=== PATIENT | female | born 1965 | race Caucasian/White ===

== ENCOUNTER → 2019-08-09 | Outpatient (CLI) | payer OTHER ==
[~2019-08-09] MED LIST: Augmentin 875-1 EACH PO; Norco 5-325 Ta1 EACH PO
== END ==
LOC: LAB SHORT 10:03 → PLD 10:03
DX: C79.2 Secondary malignant neoplasm of skin (principal)
CPT/HCPCS: 88342

== ENCOUNTER 2022-09-08 10:58 | Day surgery (SDC) | payer OTHER ==
[~2022-09-08] VITALS: Ht 157.5 cm; Wt 67.0 kg
[2022-09-08] VITALS (18 sets, daily range): BP systolic 99–133; BP diastolic 49–79
[~2022-09-08 10:58] MED LIST changes: +BIRTH CONTROL PILL PO; +EFFEXOR XR37.5 MG PO; +NURTEC ODT75 MG PO; +PROPRANOLOL 20 MG PO
--- NOTE | 2022-09-08 12:21 | NUR ---
NERVE BLOCK COMPLETED BY ANESTHESIA AFTER CONSENT AND TIME OUT WAS COMPLETED. OTHER RN Court ASSISTED DR. CAREY. PT TOLERATED PROCEDURE WITHOUT INCIDENT, PULSE OX MONITORED.
--- NOTE | 2022-09-08 16:28 | NUR ---
DISCHARGE NOTE Discharge instructions reviewed with patient. Patient verbalizes understanding. Copy given to patient to take home. Discharged via wheelchair to private car for ride home.
--- NOTE | 2022-09-08 16:31 | NUR ---
ANESTHESIOLOGIST CONSULTED WITH PATIENT IN RECOVERY REGARDING NERVE BLOCK AND PAIN CONTROL. PER MD, NERVE BLOCK EFFECTIVE EVIDENCED BY PATIENT'S INABILITY TO MOVE DIGITS ON OPERATIVE EXTREMITY. MD ADVISED CONTINUE WITH CURRENT PLAN OF TREATMENT. ALSO ADVISED TO ADD IBUPROFEN INTO TREATMENT PLAN AFTER DISCHARGE. SURGEON CONSULTED AT BEDSIDE IN RECOVERY TO ASSESS CIRCULATION, COLOR, AND CAP REFILL. AFTER ASSESSMENT, STATES OPERATIVE LIMB EXPECTED, NO FURTHER CONCERNS. PT SAFE TO DISCHARGE HOME.
--- NOTE | 2022-09-08 16:39 | NUR ---
ADDITIONAL AQUA-LESLIE DRESSING PROVIDED TO PATIENT, PER MD ORDERS.
--- NOTE | 2022-09-12 14:13 | NUR ---
09/12/22 1413 Tami Penn VERIFICATIONS: EDIT CHART.
== END 2022-09-08 16:30 | disposition home or self-care (01) ==
LOC: ORSCMMR 10:58 → ORD 12:30 → ORSCMMR 16:30
PROVIDERS: Orthopaedic Surgery
PROC: 0PSH04Z Reposition Right Radius with Internal Fixation Device, Open Approach (ICD-10-PCS; principal; 2022-09-08 12:30)
DX: S52.531A Colles' fracture of right radius, initial encounter for closed fracture (principal); W01.0XXA Fall on same level from slipping, tripping and stumbling without subsequent striking against object, initial encounter; Y93.K1 Activity, walking an animal; Z79.899 Other long term (current) drug therapy; F41.9 Anxiety disorder, unspecified
CPT/HCPCS: A9270; C1713; J0690; J1100; J1170; J1885; J2250; J2405; J2704; J2795; J3010; J7120

== ENCOUNTER 2023-03-21 13:20 | Day surgery (SDC) | payer OTHER ==
[~2023-03-21] VITALS: Ht 157.5 cm; Wt 68.2 kg
[2023-03-21] VITALS (10 sets, daily range): BP systolic 108–150; BP diastolic 65–100
--- NOTE | 2023-03-21 14:54 | NUR ---
Ambulatory in Day Surgery History, Chart, Medications and Allergies reviewed before start of procedure. Pre-Op teaching done. Pt verbalizes understanding. Patient States Post-Procedure ride home has been arranged.
--- NOTE | 2023-03-21 17:00 | NUR ---
PT TO DAY SURGERY STEP DOWN FROM PACU. PT AWAKE AND ALERT, MOVES SELF IN BED. NO COMPLAINTS. HAS AQUACEL DRESSING ON RIGHT WRIST THAT IS C/D/I WITH A CM SPOT WITH DRAINAGE SEEN THROUGH THE DRESSING. PT IN WAITING ROOM AND WILL BE HER RIDE.
--- NOTE | 2023-03-21 17:16 | NUR ---
PT TOLERATING PO FLUIDS AND CRACKERS WELL. AT SIDE. INCISION REMAINS UNCHANGED.
--- NOTE | 2023-03-21 17:35 | NUR ---
Discharge instructions reviewed with patient. Patient verbalizes understanding. Copy given to patient to take home. Patient States Post-Procedure ride home has been arranged.
--- NOTE | 2023-03-21 17:40 | NUR ---
Patient up to Ambulate independently. Gait steady.
--- NOTE | 2023-03-21 17:46 | NUR ---
Discharged via wheelchair to private car for ride home.
== END 2023-03-21 17:46 | disposition home or self-care (01) ==
LOC: ORSCMMR 13:20 → ORD 14:45 → ORSCMMR 14:45
PROVIDERS: Orthopaedic Surgery
PROC: 0QP104Z Removal of Internal Fixation Device from Sacrum, Open Approach (ICD-10-PCS; principal; 2023-03-21 15:30)
DX: T84.84XA Pain due to internal orthopedic prosthetic devices, implants and grafts, initial encounter (principal); W01.0XXA Fall on same level from slipping, tripping and stumbling without subsequent striking against object, initial encounter; F41.8 Other specified anxiety disorders; Z79.899 Other long term (current) drug therapy
CPT/HCPCS: 73100; A9270; J0690; J1100; J1885; J2250; J2405; J2704; J3010; J7120

== ENCOUNTER → 2023-09-13 | Outpatient (CLI) | payer OTHER ==
[2023-09-13 13:48] LABS: BASOPHILS ABSOLUTE AUTO 0.04 K/mm3 (0.00-0.23); BASOPHILS PERCENT AUTO 1 % (0-2); EOSINOPHILS ABSOLUTE AUTO 0.19 K/mm3 (0.00-0.68); EOSINOPHILS PERCENT AUTO 3 % (0-6); Hematocrit 38.1 % (33.0-51.0); IMMATURE GRAN ABSOLUTE AUTO 0.02 K/mm3 (0.00-0.10); IMMATURE GRAN PERCENT AUTO 0 % (0-1); LYMPHOCYTES ABSOLUTE AUTO 1.98 K/mm3 (0.84-5.20); LYMPHOCYTES PERCENT AUTO 28 % (21-46); MONOCYTES ABSOLUTE AUTO 0.57 K/mm3 (0.16-1.47); MONOCYTES PERCENT AUTO 8 % (4-13); Mean Corpuscular HGB 32.3 pg (26.0-34.0); Mean Corpuscular HGB Conc 34.1 g/dL (31.5-36.5); Mean Corpuscular Volume 95 fL (80-100); Mean Platelet Volume 9.1 fL (9.1-12.4); NEUTROPHILS ABSOLUTE AUTO 4.17 K/mm3 (1.96-9.15); NEUTROPHILS PERCENT AUTO 60 % (41-73); Platelet Count 381 K/mm3 (150-400); RDW Coefficient Variation 13.3 % (11.7-14.2); RDW Standard Deviation 46.5 fL (35.1-46.3); Red Blood Cell Count 4.03 M/mm3 (3.80-5.20); White Blood Cell Count 6.97 K/mm3 (4.00-11.30)
[2023-09-13 13:57] LABS: Alanine Aminotransfer (ALT/SGP 22 U/L (12-78); Albumin, Blood 3.5 g/dL (3.4-5.0); Alk Phos 52 U/L (50-136); Anion Gap 8 mmol/L (3-11); Aspartate Aminotrans (AST/SGOT 13 U/L (12-37); Bilirubin, Total 0.2 mg/dL (0.1-1.0); Blood Urea Nitrogen 15 mg/dL (8-24); Bun/Creatinine Ratio 20.8 (12.0-20.0); CO2, Blood 26 mmol/L (21-32); Calcium, Blood 9.4 mg/dL (8.5-10.1); Chloride, Blood 108 mmol/L (98-108); Cholesterol 254 mg/dL (50-200); Creatinine, Blood 0.72 mg/dL (0.40-1.00); Globulin, Blood 3.5 g/dL (2.2-4.0); Glomerular Filtration Rate 97 (60-); Glucose, Blood 105 mg/dL (70-99); HDL Cholesterol 42 mg/dL (>39); LDL/HDL RATIO 3.7; Low Density Lipoprotein Chol 156 mg/dL (0-110); Potassium, Blood 3.8 mmol/L (3.5-5.5); Sodium, Blood 138 mmol/L (136-145); Triglycerides 282 mg/dL (30-160); Very Low Density Lipoprot Chol 56 mg/dL (6-32)
== END ==
LOC: LAB SHORT 11:44 → LAB 11:44
PROVIDERS: Family Medicine
DX: Z13.6 Encounter for screening for cardiovascular disorders (principal); R06.02 Shortness of breath
CPT/HCPCS: 80053; 80061; 83036; 84484; 85025

== ENCOUNTER 2024-01-25 09:13 | Day surgery (SDC) | payer OTHER ==
[2024-01-25] VITALS (15 sets, daily range): BP systolic 97–142; BP diastolic 50–82
[~2024-01-25] VITALS: Ht 157.5 cm; Wt 67.0 kg
[~2024-01-25 09:13] MED LIST changes: +Acetaminophen 500 MG Tab PO SCH; +CeFAZolin Sodium 2,000 MG in NS 100 ML IV SCH; +Chlorhexidine Mouth Care 15 ML UDC MT SCH; +DESV50 PO; +FALMINA-28 TAB1 EACH PO; +Lactated Ringer's 1,000 ML IV SCH; +OxyCODONE HCL 10 MG TABCR PO SCH; +Ropivacaine 0.5% HCl/Pf 123.125 MG,EPINEPHrine HCL 0.25 MG,Ketorolac Tromethamine 15 MG... INFIL SCH; +Tranexamic Acid 100 ML IV SCH
--- NOTE | 2024-01-25 09:51 | NUR ---
Ambulatory in Day Surgery History, Chart, Medications and Allergies reviewed before start of procedure. Pre-Op teaching done. Pt verbalizes understanding.
[2024-01-25] MEDS ORDERED: CeFAZolin Sodium 2,000 MG in NS 100 ML IV SCH ×2 (10:05→18:30)
[2024-01-25] MEDS ORDERED: Bupivacaine 0.75%/Dext 8.25% 2 ML Amp IT ONE (10:07)
[2024-01-25] MEDS ORDERED: propofoL 100 ML IV ONE (10:07)
[2024-01-25] MEDS ORDERED: Midazolam HCL 1 MG/ML 5MLVIAL ONE (10:12)
[2024-01-25] MEDS ORDERED: FentaNYL Citrate 50 MCG/ML 2 ML Injection ONE (10:15)
[2024-01-25] MEDS ORDERED: Ondansetron HCl 2 MG / ML 2ML Vial ONE (10:38)
[2024-01-25] MEDS ORDERED: Dexamethasone Sod Phos 10 MG/ML 1ML VIAL ONE (10:38)
[2024-01-25] MEDS ORDERED: Bisacodyl 10 MG Supp PR PRN (11:00)
[2024-01-25] MEDS ORDERED: DiphenhydrAMINE HCL 25 MG Cap PO PRN (11:00)
[2024-01-25] MEDS ORDERED: Ondansetron HCl 2 MG / ML 2ML Vial IV PRN (11:05)
[2024-01-25] MEDS ORDERED: Metoclopramide HCl 5MG / ML 2ML Vial IV PRN (11:05)
[2024-01-25] MEDS ORDERED: Magnesium Hydroxide Conc 10 ML UDC PO PRN (11:05)
[2024-01-25] MEDS ORDERED: OxyCODONE HCL 5 MG TAB PO PRN ×2 (11:05)
[2024-01-25] MEDS ORDERED: Promethazine HCl 25 MG Tab PO PRN (11:05)
[2024-01-25] MEDS ORDERED: HYDROmorphone HCl/Pf 1MG SYR IV PRN (11:10)
[2024-01-25] MEDS ORDERED: Lactated Ringer's 1,000 ML IV SCH (11:10)
[2024-01-25] MEDS ORDERED: RIMEGEPANT 75 MG PO PRN (11:15)
[2024-01-25] MEDS ORDERED: Acetaminophen 500 MG Tab PO SCH (16:00)
[2024-01-25] MEDS ORDERED: Ketorolac Tromethamine 15mg Vial IV SCH (18:00)
--- NOTE | 2024-01-25 19:35 | NUR ---
SHIFT SUMMARY POD0 RTKA. AQUACEL AND RUPA WRAP IN PLACE C/D/I. TOLERATING PO INTAKE AND VOIDING. PATIENT IS A SBA W/ FWW, AND GB. TOELRATING PAIN MEDICATION AND ICE TO R KNEE. PLAN FOR PT IN AM. CALL LIGHT IN REACH VSS.
[2024-01-25] MEDS ORDERED: Docusate Sodium 100 MG Cap PO SCH (21:00)
[2024-01-26] VITALS (7 sets, daily range): BP systolic 83–146; BP diastolic 60–73
[2024-01-26 04:51] LABS: BASOPHILS PERCENT AUTO 0 % (0-2); EOSINOPHILS ABSOLUTE AUTO 0.02 K/mm3 (0.00-0.68); EOSINOPHILS PERCENT AUTO 0 % (0-6); Hematocrit 34.3 % (33.0-51.0); Hemoglobin 11.4 g/dL (11.5-16.0); IMMATURE GRAN ABSOLUTE AUTO 0.05 K/mm3 (0.00-0.10); IMMATURE GRAN PERCENT AUTO 0 % (0-1); LYMPHOCYTES PERCENT AUTO 10 % (21-46); MONOCYTES ABSOLUTE AUTO 1.12 K/mm3 (0.16-1.47); MONOCYTES PERCENT AUTO 9 % (4-13); Mean Corpuscular HGB 32.2 pg (26.0-34.0); Mean Corpuscular HGB Conc 33.2 g/dL (31.5-36.5); Mean Corpuscular Volume 97 fL (80-100); Mean Platelet Volume 8.7 fL (9.1-12.4); NEUTROPHILS ABSOLUTE AUTO 10.03 K/mm3 (1.96-9.15); NEUTROPHILS PERCENT AUTO 80 % (41-73); Platelet Count 339 K/mm3 (150-400); RDW Coefficient Variation 13.5 % (11.7-14.2); RDW Standard Deviation 48.6 fL (35.1-46.3); Red Blood Cell Count 3.54 M/mm3 (3.80-5.20); White Blood Cell Count 12.52 K/mm3 (4.00-11.30)
[2024-01-26 05:14] LABS: Bun/Creatinine Ratio 13.5 (12.0-20.0); Calcium, Blood 8.7 mg/dL (8.5-10.1); Creatinine, Blood 0.59 mg/dL (0.40-1.00); Potassium, Blood 3.9 mmol/L (3.5-5.5)
--- NOTE | 2024-01-26 05:32 | NUR ---
PATIENT UPDATE AT 0445 THIS RN WAS CALLED BY THE PAPER BAGS SEWING MACHINE OPERATOR D/T THE PATIENT FEELING FAINT, DIAPHORETIC, AND NAUSEATED. WHEN ARRIVING IN THE ROOM THE PATIENT APPEARED DIAPHORETIC AND FAINT. BP WAS 83/70. PATIENT IMMEDIATELY LAYED DOWN AND PRESSURE WAS RETAKEN, READ 95/60. PT STATED SHE BEGAN TO FEEL SUBSTERNAL DISCOMFORT AT 0400 AND REPORTED TO THE PAPER BAGS SEWING MACHINE OPERATOR THAT SHE HAD "INDIGESTION" BUT WAS OKAY BECAUSHE SHE HAD CRACKERS. PRIMARY RN NOTIFIED OF THE INDIGESTION AT THIS TIME. PT REPORTS THAT THE PAIN HAS ONLY WORSENED OVER THE LAST HOUR AND IS NOW DEEP, SHARP, STABBING, AND RADIATING TO HER L SHOULDER. OVER THE NEXT 30 MINUTES AN EKG WAS PERFORMED AND REPEATE VITAL SIGNS WERE TAKEN. NO ACUTE FINDINGS ON THE EKG, AND VITALS SLOWLY RETURNED TO HER BASELINE, BEING 129/64. PT REPORTS AFTER LAYING BACK DOWN THAT HER SUBSTERNAL PAIN HAS RESOLVED COMPELTELY. PT AT THIS TIME CONTINUES TO REQUEST TO GET OOB TO USE THE BATHROOM, PT EDUCATED MULTIPLE TIMES ABOUT HOW THAT IS UNSAFE. PT VERBALIZED THAT SHE DOES NOT UNDERSTAND OUR PRECAUTIONS OR THE GRAVITY OF THE SITUATION AT HAND. THIS RN IS CONCERNED THAT THE PATIENT MAY BE CONFUSED, SHE HAS BEEN REPORTING HEARING NOISES THAT HAVE NOT BEEN OCCURING, SUCH SCREAMING "LASTING FOR HOURS OUTSIDE". PT FEELS VERY STRESSED AND EXASERBATED BY THESE NOISES, BUT THIS RN AND HER PRIMARY RN HAVE BEEN UNABLE TO LOCATE ANY SOURCE OF THIS NOUSE T/O THE NIGHT. PLAN TO CONTACT ORTHO SURGEON AND AWAIT FURTHER ORDERS.
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
[2024-01-26] MEDS ORDERED: ASPI81CH PO (07:36)
[2024-01-26] MEDS ORDERED: TraMADol HCl 50 MG Tab PO PRN (08:05)
[2024-01-26] MEDS ORDERED: ETHINYL ESTRADIOL PO SCH (09:00)
[2024-01-26] MEDS ORDERED: LEVONORGESTREL PO SCH (09:00)
[2024-01-26] MEDS ORDERED: Aspirin 81 MG Chew PO SCH (09:00)
[2024-01-26] MEDS ORDERED: DESVENLAFAXINE 50 MG PO SCH (09:00)
--- NOTE | 2024-01-26 11:25 | NUR ---
DISCHARGED PATIENT PASSES THERPAY THIS AM, IS TOLERATING PO INTAKE, PAIN IS WELL MANAGED. ALL BELONGINGS ARE PACKED WITH SPOUSE, EXTRA DRESSINGS GIVEN TO PATIENT. PATIENT READS AND UNDERSTANDS ALL INSTRUCTIONS, IV IS TAKEN OUT WITH NO COMPLICATIONS. PATIENT LEAVES VIA PRIVATE CAR.
== END 2024-01-26 10:45 | disposition home or self-care (01) ==
LOC: ORSCMMR 09:13 → ORD 10:30 → ORSCMMR 10:30 → SURS 10:30 → ORSCMMR 01-26 10:45 → SURS 01-26 10:45
PROVIDERS: Orthopaedic Surgery
PROC: 0SRC0JA Replacement of Right Knee Joint with Synthetic Substitute, Uncemented, Open Approach (ICD-10-PCS; principal; 2024-01-25 10:30)
DX: M17.11 Unilateral primary osteoarthritis, right knee (principal); F41.9 Anxiety disorder, unspecified; Z79.899 Other long term (current) drug therapy; E66.01 Morbid (severe) obesity due to excess calories; Z68.41 Body mass index [BMI] 40.0-44.9, adult
CPT/HCPCS: 36415; 73560-RT; 80048; 84484; 85025; 93005; 93010; 97110; 97116; 97162; A9270; C1776; J0171; J0690; J0735; J1100; J1885; J2250; J2405; J2704; J2795; J3010; J7120

== ENCOUNTER 2024-01-30 16:30 | Emergency (ER) | payer OTHER ==
[~2024-01-30] VITALS: Ht 157.5 cm; Wt 68.0 kg
[~2024-01-30 16:30] MED LIST changes: +ASPI81CH PO; -Acetaminophen 500 MG Tab PO SCH; -CeFAZolin Sodium 2,000 MG in NS 100 ML IV SCH; -Chlorhexidine Mouth Care 15 ML UDC MT SCH; -Lactated Ringer's 1,000 ML IV SCH; -OxyCODONE HCL 10 MG TABCR PO SCH; -Ropivacaine 0.5% HCl/Pf 123.125 MG,EPINEPHrine HCL 0.25 MG,Ketorolac Tromethamine 15 MG... INFIL SCH; -Tranexamic Acid 100 ML IV SCH
[2024-01-30 17:21] LABS: BASOPHILS ABSOLUTE AUTO 0.07 K/mm3 (0.00-0.23); BASOPHILS PERCENT AUTO 1 % (0-2); EOSINOPHILS ABSOLUTE AUTO 0.81 K/mm3 (0.00-0.68); EOSINOPHILS PERCENT AUTO 10 % (0-6); Hematocrit 36.6 % (33.0-51.0); Hemoglobin 12.2 g/dL (11.5-16.0); IMMATURE GRAN ABSOLUTE AUTO 0.05 K/mm3 (0.00-0.10); IMMATURE GRAN PERCENT AUTO 1 % (0-1); LYMPHOCYTES ABSOLUTE AUTO 2.06 K/mm3 (0.84-5.20); LYMPHOCYTES PERCENT AUTO 25 % (21-46); MONOCYTES ABSOLUTE AUTO 0.95 K/mm3 (0.16-1.47); MONOCYTES PERCENT AUTO 11 % (4-13); Mean Corpuscular HGB 31.9 pg (26.0-34.0); Mean Corpuscular HGB Conc 33.3 g/dL (31.5-36.5); Mean Corpuscular Volume 96 fL (80-100); Mean Platelet Volume 8.4 fL (9.1-12.4); NEUTROPHILS ABSOLUTE AUTO 4.44 K/mm3 (1.96-9.15); NEUTROPHILS PERCENT AUTO 53 % (41-73); Platelet Count 503 K/mm3 (150-400); RDW Coefficient Variation 13.1 % (11.7-14.2); Red Blood Cell Count 3.83 M/mm3 (3.80-5.20); White Blood Cell Count 8.38 K/mm3 (4.00-11.30)
[2024-01-30 17:42] LABS: Albumin, Blood 3.3 g/dL (3.4-5.0); Albumin/Globulin Ratio 0.8 (0.8-1.8); Bilirubin, Total 0.4 mg/dL (0.1-1.0); Bun/Creatinine Ratio 11.9 (12.0-20.0); Calcium, Blood 9.2 mg/dL (8.5-10.1); Creatinine, Blood 0.67 mg/dL (0.40-1.00); Globulin, Blood 4.3 g/dL (2.2-4.0); Potassium, Blood 3.3 mmol/L (3.5-5.5); Total Protein, Blood 7.6 g/dL (6.4-8.2)
[2024-01-30] MEDS ORDERED: TRAM50 PO (18:30)
[2024-01-30 19:00] LABS: Influenza A, PCR NEGATIVE (NEGATIVE); Influenza B, PCR NEGATIVE (NEGATIVE); Resp Syncytial Virus, PCR NEGATIVE (NEGATIVE); SARS-Cov-2 (COVID-19) PCR, MMC NEGATIVE (NEGATIVE)
[2024-01-30 19:15] VITALS: BP 137/74
== END 2024-01-30 19:58 | disposition home or self-care (01) ==
LOC: ER 16:30
PROVIDERS: Physician Assistant; Student in an Organized Health Care Education/Training Program
DX: R06.02 Shortness of breath (principal); L25.9 Unspecified contact dermatitis, unspecified cause; R63.8 Other symptoms and signs concerning food and fluid intake; Z98.890 Other specified postprocedural states; Z79.82 Long term (current) use of aspirin; Z79.899 Other long term (current) drug therapy; Z88.8 Allergy status to other drugs, medicaments and biological substances
CPT/HCPCS: 0241U; 71046; 71260; 80053; 83880; 84484; 85025; 85379; 93005; 93010; 99285-25; Q9967

== ENCOUNTER → 2025-01-04 | Outpatient (CLI) | payer OTHER ==
[~2025-01-04] MED LIST changes: +TRAM50 PO
[2025-01-09 06:49] LABS: O-DESMETHYLTRAMADOL,URN, QUANT 3251 ng/mL; TRAMADOL, URN, QUANT 2209 ng/mL
== END | disposition home or self-care (01) ==
LOC: LAB 10:30 → LAB SHORT 10:30
PROVIDERS: Family Medicine
DX: Z51.81 Encounter for therapeutic drug level monitoring (principal); Z79.899 Other long term (current) drug therapy
CPT/HCPCS: G0480